=== PATIENT | female | born 1955 | race Caucasian/White ===

== ENCOUNTER 2018-02-13 12:29 | Outpatient (CLI) | payer MEDICARE, OTHER | END 2018-02-13 12:30 | disposition home or self-care (01) | LOC: BICCT 12:29 | PROVIDERS: ATTEND Family Medicine | DX: G43.119 Migraine with aura, intractable, without status migrainosus (principal) | CPT/HCPCS: 70450 ==

== ENCOUNTER 2022-11-07 09:02 | Day surgery (SDC) | payer MEDICARE ==
[2022-11-06 12:04] VITALS: BMI 23.3
[2022-11-07] MEDS ORDERED: fentaNYL 50 mcg/mL 1 mL Vial ONE ×3 (10:41→12:44)
[2022-11-07] MEDS ORDERED: Oxymetazoline HCl 0.05% (30 ML BOT) ONE (10:50)
[2022-11-07 11:10] LABS: Hemoglobin 13.4 g/dL (12.0-16.0)
[2022-11-07] MEDS ORDERED: PROPOFOL 200 MG/20 ML VIAL ONE (11:21)
[2022-11-07] MEDS ORDERED: Dexamethasone 20 MG/5 ML VIAL ONE (11:21)
[2022-11-07] MEDS ORDERED: Lidocaine 1% PF 5 ML VIAL ONE (11:21)
[2022-11-07] MEDS ORDERED: Ondansetron PF 4 MG/2 ML Vial ONE (11:21)
[2022-11-07] MEDS ORDERED: EPINEPHrine 1 MG/ML AMP ONE (11:26)
[2022-11-07] MEDS ORDERED: Bacitracin Zinc Ointment 30 gm TUBE ONE (11:26)
[2022-11-07] MEDS ORDERED: Lidocaine 1% (PF) 30 ML VIAL ONE (11:26)
[2022-11-07 11:42] LABS: Anion Gap 11 mmol/L (10-20); BUN (Urea Nitrogen) 20 mg/dL (9.8-20.1); Calc. Creatinine Clearance 69 mL/min (70-130); Calcium 9.9 mg/dL (7.8-10.44); Carbon Dioxide 27 mmol/L (23-31); Chloride 106 mmol/L (98-107); Estimated GFR 80; Glucose 86 mg/dL (80-115); Sodium 140 mmol/L (136-145)
[2022-11-07] MEDS ORDERED: Morphine 2 MG/ML VIAL ONE (13:40)
[2022-11-07] MEDS ORDERED: Ciprofloxacin 0.2% Otic (0.25ML CONTAINER) ONE (14:56)
[2022-11-07] MEDS ORDERED: Acetaminophen 500 MG TAB ONE (15:04)
== END 2022-11-07 15:35 | disposition home or self-care (01) ==
LOC: SDC 09:02
PROVIDERS: ATTEND Specialist
PROC: 099T8ZZ Drainage of Left Frontal Sinus, Via Natural or Artificial Opening Endoscopic (ICD-10-PCS; principal; 2022-11-07)
PROC: 099S8ZZ Drainage of Right Frontal Sinus, Via Natural or Artificial Opening Endoscopic (ICD-10-PCS; 2022-11-07)
PROC: 099R8ZZ Drainage of Left Maxillary Sinus, Via Natural or Artificial Opening Endoscopic (ICD-10-PCS; 2022-11-07)
PROC: 099Q8ZZ Drainage of Right Maxillary Sinus, Via Natural or Artificial Opening Endoscopic (ICD-10-PCS; 2022-11-07)
PROC: 09TV8ZZ Resection of Left Ethmoid Sinus, Via Natural or Artificial Opening Endoscopic (ICD-10-PCS; 2022-11-07)
PROC: 09TU8ZZ Resection of Right Ethmoid Sinus, Via Natural or Artificial Opening Endoscopic (ICD-10-PCS; 2022-11-07)
PROC: 09QK8ZZ Repair Nasal Mucosa and Soft Tissue, Via Natural or Artificial Opening Endoscopic (ICD-10-PCS; 2022-11-07)
PROC: 09SL8ZZ Reposition Nasal Turbinate, Via Natural or Artificial Opening Endoscopic (ICD-10-PCS; 2022-11-07)
PROC: 8E09XBZ Computer Assisted Procedure of Head and Neck Region (ICD-10-PCS; 2022-11-07)
DX: J01.91 Acute recurrent sinusitis, unspecified (principal); J32.8 Other chronic sinusitis; J34.89 Other specified disorders of nose and nasal sinuses; J34.3 Hypertrophy of nasal turbinates; J31.2 Chronic pharyngitis; H90.3 Sensorineural hearing loss, bilateral; M54.81 Occipital neuralgia; E78.00 Pure hypercholesterolemia, unspecified; E03.9 Hypothyroidism, unspecified; Z79.2 Long term (current) use of antibiotics; Z79.82 Long term (current) use of aspirin; Z79.890 Hormone replacement therapy; Z88.5 Allergy status to narcotic agent; Z91.040 Latex allergy status
CPT/HCPCS: 30130; 30468; 31253; 31256; 61782; 80048; 85014; 85018; 93005; J3010; 93010; J0171; J1100; J2001; J2272; J2405; J2704

== ENCOUNTER 2023-06-30 14:40 | Outpatient (CLI) | payer OTHER | END 2023-06-30 14:41 | disposition home or self-care (01) | LOC: BICCT 14:40 | PROVIDERS: ATTEND Family Medicine | DX: E78.5 Hyperlipidemia, unspecified (principal) | CPT/HCPCS: 75571 ==

== ENCOUNTER 2023-12-19 10:09 | Outpatient (CLI) | payer MEDICARE, OTHER ==
[2023-12-19 12:36] LABS: #Basophils 0.05 10x3/uL (0.0-0.2); #Eosinphils 0.39 10x3/uL (0.0-0.5); #Monocytes 1.02 10x3/uL (0.0-1.1); #Neutrophils 4.74 10x3/uL (1.5-8.4); %Basophils 0.6 % (0.0-2.0); %Eosinophils 4.7 % (0.0-6.0); %Lymphocytes 25.6 % (18.0-47.0); %Monocytes 12.2 % (0.0-10.0); %Neutrophils 56.5 % (40.0-75.0); Hematocrit 40.5 % (34.9-44.5); Hemoglobin 13.7 g/dL (12.0-15.5); Mean Corpuscular HGB CONC 33.8 g/dL (32.0-36.0); Mean Corpuscular Hemoglobin 32.1 pg (27.0-33.0); Mean Corpuscular Volume 94.8 fl (81.6-98.3); Mean Platelet Volume 11.6 fl (7.4-10.4); Platelet Count 264 10x3/uL (150-450); RBC Distribution Width 14.4 % (11.5-14.5); Red Blood Cell (RBC) Count 4.27 10x6/uL (3.90-5.03); White Blood Cell (WBC) Count 8.4 10x3/uL (3.5-10.5)
== END 2023-12-19 10:10 | disposition home or self-care (01) ==
LOC: LABBT 10:09
PROVIDERS: ATTEND Orthopaedic Surgery Hand Surgery
DX: Z01.812 Encounter for preprocedural laboratory examination (principal); M18.12 Unilateral primary osteoarthritis of first carpometacarpal joint, left hand
CPT/HCPCS: 85025

== ENCOUNTER 2023-12-23 06:00 | Day surgery (SDC) | payer MEDICARE, OTHER ==
[2023-12-19 10:29] VITALS: BMI 23.4
[2023-12-23] MEDS ORDERED: Bupivacaine PF 0.5% 30 ML VIAL ONE (06:43)
[2023-12-23] MEDS ORDERED: Bacitracin Zinc Ointment 30 gm TUBE ONE (06:43)
[2023-12-23] MEDS ORDERED: CEFAZOLIN 2 GM VIAL ONE (07:03)
[2023-12-23] MEDS ORDERED: Sodium Chloride 0.9% 100 ML ONE (07:03)
[2023-12-23] MEDS ORDERED: Dexmedetomidine 200 MCG/2 ML VIAL ONE (07:07)
[2023-12-23] MEDS ORDERED: fentaNYL 50 mcg/mL 1 mL Vial ONE (07:08)
[2023-12-23] MEDS ORDERED: Midazolam HCl 2 mg/2 ml Vial ONE (07:08)
[2023-12-23] MEDS ORDERED: Dexamethasone 4 mg/ml Vial ONE (07:11)
[2023-12-23] MEDS ORDERED: Bupivacaine HCl 0.5%/Epinephrine 1:200,000/PF 30 ml Vial ONE (07:30)
[2023-12-23] MEDS ORDERED: PROPOFOL 20 ML ONE (07:34)
[2023-12-23] MEDS ORDERED: Lidocaine 2% PF 5 ML VIAL ONE (07:35)
[2023-12-23] MEDS ORDERED: Lidocaine 1% MPF 2 ML VIAL ONE (07:47)
[2023-12-23] MEDS ORDERED: Glycopyrrolate 0.2 MG/ML 5 ML SYRINGE ONE (07:47)
[2023-12-23] MEDS ORDERED: ePHEDrine Sulfate 50 MG/10 ML VIAL ONE (07:52)
[2023-12-23] MEDS ORDERED: PHENYLEPHRINE-NS 100 MCG/ML 10 ML SYRINGE ONE ×2 (08:14→10:23)
[2023-12-23] MEDS ORDERED: Ondansetron PF 4 MG/2 ML Vial ONE (10:01)
[2023-12-23] MEDS ORDERED: Ketorolac Tromethamine 30 MG (1 mL) VIAL ONE (10:01)
== END 2023-12-23 12:15 | disposition home or self-care (01) ==
LOC: SDC 06:00
PROVIDERS: ATTEND Orthopaedic Surgery Hand Surgery
PROC: 0RRP0JZ Replacement of Left Wrist Joint with Synthetic Substitute, Open Approach (ICD-10-PCS; principal; 2023-12-23)
PROC: 0LX80ZZ Transfer Left Hand Tendon, Open Approach (ICD-10-PCS; 2023-12-23)
DX: M18.12 Unilateral primary osteoarthritis of first carpometacarpal joint, left hand (principal); M48.02 Spinal stenosis, cervical region; M18.11 Unilateral primary osteoarthritis of first carpometacarpal joint, right hand; Z98.890 Other specified postprocedural states; E78.5 Hyperlipidemia, unspecified; G43.909 Migraine, unspecified, not intractable, without status migrainosus; E03.9 Hypothyroidism, unspecified; Z90.710 Acquired absence of both cervix and uterus; Z98.41 Cataract extraction status, right eye; Z98.42 Cataract extraction status, left eye; Z79.890 Hormone replacement therapy; Z79.899 Other long term (current) drug therapy; Z88.5 Allergy status to narcotic agent; Z91.040 Latex allergy status; Z88.8 Allergy status to other drugs, medicaments and biological substances
CPT/HCPCS: 25310; 25447; 73110; C1713; C1894; J3010; J0665; J1100; J1885; J2001; J2250; J2405; J2704; J3490

== ENCOUNTER 2024-04-14 08:46 | Outpatient (CLI) | payer MEDICARE, OTHER | END 2024-04-14 08:47 | disposition home or self-care (01) | LOC: SCSMRI 08:46 | PROVIDERS: ATTEND Orthopaedic Surgery | DX: M75.102 Unspecified rotator cuff tear or rupture of left shoulder, not specified as traumatic (principal); S46.812A Strain of other muscles, fascia and tendons at shoulder and upper arm level, left arm, initial encounter; M19.012 Primary osteoarthritis, left shoulder ==

== ENCOUNTER 2024-08-18 12:55 | Outpatient (CLI) | payer MEDICARE, OTHER | END 2024-08-18 12:56 | disposition home or self-care (01) | LOC: BICMRI 12:55 | PROVIDERS: ATTEND Orthopaedic Surgery Hand Surgery | DX: M87.042 Idiopathic aseptic necrosis of left hand (principal); M65.842 Other synovitis and tenosynovitis, left hand; Z98.890 Other specified postprocedural states ==

== ENCOUNTER 2025-04-21 11:32 | Outpatient (CLI) | payer MEDICARE, OTHER ==
[2025-04-21 13:03] LABS: #Basophils 0.05 10x3/uL (0.0-0.2); #Eosinophils 0.57 10x3/uL (0.0-0.7); #Monocytes 1.07 10x3/uL (0.11-0.59); #Neutrophils 4.36 10x3/uL (1.40-6.50); %Basophils 0.6 % (0.0-1.0); %Eosinophils 6.8 % (0.0-10.0); %Lymphocytes 27.0 % (21.0-51.0); %Monocytes 12.8 % (0.0-10.0); %Neutrophils 52.3 % (42.0-75.0); Hematocrit 40.9 % (36.0-47.0); Hemoglobin 13.0 g/dL (12.0-16.0); Mean Corpuscular Hemoglobin 30.2 pg (27.0-31.0); Mean Corpuscular Volume 94.9 fL (78.0-98.0); Platelet Count 282 10x3/uL (130-400); Red Blood Cell (RBC) Count 4.31 mill/uL (4.20-5.40); White Blood Cell (WBC) Count 8.34 10x3/uL (4.8-10.8)
[2025-04-21 13:38] LABS: INR-International Normal Ratio 1.1; Prothrombin Time 13.8 sec (12.0-14.7)
== END 2025-04-21 11:33 | disposition home or self-care (01) ==
LOC: LABBT 11:32
PROVIDERS: ATTEND Orthopaedic Surgery Hand Surgery
DX: Z01.818 Encounter for other preprocedural examination (principal); M65.4 Radial styloid tenosynovitis [de Quervain]; S63.219A Subluxation of metacarpophalangeal joint of unspecified finger, initial encounter; S63.052A Subluxation of other carpometacarpal joint of left hand, initial encounter
CPT/HCPCS: 85025; 85610; 87081; 93005; 93010

== ENCOUNTER 2025-04-26 05:34 | Day surgery (SDC) | payer MEDICARE, OTHER ==
[2025-04-21 11:58] VITALS: BMI 24.1
[2025-04-26] MEDS ORDERED: Bacitracin Zinc Ointment 30 gm TUBE ONE (06:24)
[2025-04-26] MEDS ORDERED: Ropivacaine 0.2% HCl/PF 20 ML ONE (06:47)
[2025-04-26] MEDS ORDERED: Ropivacaine 0.5% HCl/PF (150 MG/30 ML VIAL) ONE (06:47)
[2025-04-26] MEDS ORDERED: Ondansetron PF 4 MG/2 ML Vial ONE (06:48)
[2025-04-26] MEDS ORDERED: Lidocaine 1% PF 5 ML VIAL ONE (06:48)
[2025-04-26] MEDS ORDERED: Rocuronium Bromide 10 MG/ML (10ML VIAL) ONE (06:48)
[2025-04-26] MEDS ORDERED: PHENYLEPHRINE-NS 100 MCG/ML 10 ML SYRINGE ONE ×2 (06:48→07:20)
[2025-04-26] MEDS ORDERED: PROPOFOL 20 ML ONE (06:50)
[2025-04-26] MEDS ORDERED: CEFAZOLIN 2 GM VIAL ONE (06:59)
[2025-04-26] MEDS ORDERED: Ketorolac Tromethamine 30 MG (1 mL) VIAL ONE (09:41)
== END 2025-04-26 11:45 | disposition home or self-care (01) ==
LOC: SDC 05:34
PROVIDERS: ATTEND Orthopaedic Surgery Hand Surgery
PROC: 0LB Tendons, Excision (ICD-10-PCS; principal; 2025-04-26)
DX: M65.4 Radial styloid tenosynovitis [de Quervain] (principal); S63.218A Subluxation of metacarpophalangeal joint of other finger, initial encounter; S63.052A Subluxation of other carpometacarpal joint of left hand, initial encounter
CPT/HCPCS: 25447; 26145; 26850; 73130; A6223; C1713; C1894; J0665; J1100; J1885; J2250; J2704; J2795 ×2